=== PATIENT | female | born 1990 | race African-American/Black ===

== ENCOUNTER 2024-12-31 21:47 | Emergency (ER) | payer SELFPAY ==
[~2024-12-31] VITALS: Ht 165.1 cm; Wt 87.0 kg
[2024-12-31 21:51] VITALS: O2SAT 97
[2024-12-31] MEDS ORDERED: METOCLOPRAMIDE HCL 10MG/2ML VIAL IV STA (22:10)
[2024-12-31] MEDS ORDERED: DIPHENHYDRAMINE 50MG/ML VIAL IV ONE (22:15)
[2024-12-31 22:46] LABS: BASOPHILS % 0.7 % (0.0-2.0); EOSINOPHILS % 0.6 % (0.0-5.0); HEMATOCRIT. 34.5 % (36.0-48.0); HEMOGLOBIN. 11.5 g/dL (12.0-16.0); LYMPHOCYTES % 19.3 % (20.0-50.0); MEAN PLATELET VOLUME 8.2 fl (7.4-10.4); MONOCYTES % 7.7 % (2.0-8.0); NEUTROPHILS % 71.7 % (40.0-76.0); PLATELET 278 x1000/uL (130-400); RED BLOOD CELL COUNT 3.87 mill/uL (4.2-5.4); RED CELL DISTRIBUTION WIDTH 13.5 % (11.6-14.6)
[2024-12-31 22:55] LABS: INR 0.9
[2024-12-31 22:59] LABS: CREATININE 0.6 mg/dL (0.6-1.0); UREA NITROGEN BLOOD 10 mg/dL (9-23)
[2024-12-31 23:00] LABS: TROPONIN I HIGH SENSITIVITY < 4 ng/L (3.0-34)
[2024-12-31 23:01] LABS: ASPARTATE AMINOTRANSFERASE 38 IU/L (<34); BILIRUBIN DIRECT < 0.1 mg/dL (<=3.0); BILIRUBIN TOTAL 0.7 mg/dL (0.1-1.0); PROTEIN TOTAL 6.3 g/dL (6.0-8.3)
[2024-12-31] MEDS: FAMOTIDINE 20MG/2ML VIAL IV STA (23:09)
[2024-12-31] MEDS: ACETAMINOPHEN 1000MG/100ML 100 ML IV ONE (23:10)
[2024-12-31] MEDS: SODIUM CHLORIDE 0.9% 1,000 ML IV ONE (23:10)
[2024-12-31 23:22] LABS: CLARITY URINE CLEAR (CLEAR); COLOR URINE YELLOW (YELLOW); GLUCOSE URINE NEGATIVE (NEGATIVE); KETONES URINE NEGATIVE (NEGATIVE); LEUKOCYTE ESTERASE URINE TRACE (NEGATIVE); NITRITE URINE NEGATIVE (NEGATIVE); OCCULT BLOOD URINE NEGATIVE (NEGATIVE); PH URINE 5.5 (4.5-8.0); PROTEIN URINE TRACE (NEGATIVE); SPECIFIC GRAVITY URINE 1.027 (1.005-1.030); UROBILINOGEN URINE 1.0 E.U./dL (0.2-1.0)
[2025-01-01] MEDS ORDERED: NITR-87 MT (00:27)
[2025-01-01 00:30] VITALS: BP 124/80; PULSE 80; RESP 18; TEMP 36.8; O2SAT 98
[2025-01-01 00:47] LABS: TROPONIN I HIGH SENSITIVITY < 4 ng/L (3.0-34)
[2025-01-01 01:24] LABS: RBC URINE 0-2 /hpf (0-2); SQUAMOUS EPITHELIAL CELL URINE FEW /lpf (RARE/1+); WBC URINE 0-2 /hpf (0-2)
[2025-01-01 01:26] LABS: BACTERIA URINE TRACE
== END 2025-01-01 00:42 | disposition home or self-care (01) ==
LOC: ER 22:19
DX: O23.41 Unspecified infection of urinary tract in pregnancy, first trimester (principal); O26.893 Other specified pregnancy related conditions, third trimester; R10.10 Upper abdominal pain, unspecified; N39.0 Urinary tract infection, site not specified; Z79.899 Other long term (current) drug therapy; Z3A.31 31 weeks gestation of pregnancy
CPT/HCPCS: 80076; 80048; 81003; 83690; 85025; 85610; 84484 ×2; 36415 ×2; 76705; 76805; 93005; 96365; 96375; 99285; J1308; J7030; Z7610; J0131